=== PATIENT | female | born 1985 | race Caucasian/White ===

== ENCOUNTER 2021-11-09 20:43 | Emergency (ER) | payer OTHER ==
[~2021-11-09] VITALS: Ht 170.2 cm; Wt 120.0 kg
[2021-11-09 20:53] VITALS: BP 189/112
[2021-11-09] MEDS ORDERED: AMOX500C2 PO (21:06)
[2021-11-09] MEDS ORDERED: ACHD5005 PO (21:07)
--- NOTE | 2021-11-09 21:07 | ED General ---
General Stated Complaint: TOOTH PAIN Source of Information: Patient Exam Limitations: No Limitations (NIC RAMIREZ APRN) History of Present Illness Date Seen by Provider: Nov 09, 2021 Time Seen by Provider: 21:02 Initial Comments To ER with reports of right upper dental pain that began around noon today. They are here visiting family from [facility]. Timing/Duration: 4-6 Hours Severity: Severe (NIC RAMIREZ APRN) Allergies and Home Medications Allergies Coded Allergies: No Known Drug Allergies (Unverified , 11/09/21) Patient Home Medication List Home Medication List Reviewed: Yes (NIC RAMIREZ APRN) Amoxicillin (Amoxicillin) 500 Mg Capsule, 500 MG PO TID Prescribed by: NIC RAMIREZ on 11/09/212105 Hydrocodone/Acetaminophen (Hydrocodone-Acetamin 5-325 mg) 1 Each Tablet, 1 TAB PO Q4H PRN for PAIN-MODERATE (5-7) Prescribed by: NIC RAMIREZ on 11/09/212106 Review of Systems Review of Systems Constitutional: see HPI EENTM: see HPI Respiratory: no symptoms reported Cardiovascular: no symptoms reported Genitourinary: no symptoms reported Musculoskeletal: no symptoms reported Skin: no symptoms reported Psychiatric/Neurological: No Symptoms Reported Hematologic/Lymphatic: No Symptoms Reported Immunological/Allergic: no symptoms reported (NIC RAMIREZ APRN) Physical Exam Vital Signs Vital Signs - First Documented 11/09/21 20:53 Temp 36.3 Pulse 75 Resp 20 B/P (MAP) 189/112 (137) Pulse Ox 98 O2 Delivery Room Air (OLINDA BOURGEOIS MD) Vital Signs Capillary Refill : (NIC RAMIREZ APRN) Height, Weight, BMI Height: '" Weight: lbs. oz. kg; BMI Method: General Appearance: No Apparent Distress, WD/WN Eyes: Bilateral Eye Normal Inspection, Bilateral Eye PERRL, Bilateral Eye EOMI HEENT: PERRL/EOMI, Other (No obvious external swelling though there is some swelling without fluctuance at the gingival buccal fold superior to the carious and fractured tooth #4.) Neck: No Lymphadenopathy (L) Respiratory: No Accessory Muscle Use, No Respiratory Distress Extremity: Normal Capillary Refill, Normal Inspection Neurologic/Psychiatric: Alert, Oriented x3 Skin: Normal Color, Warm/Dry (NIC RAMIREZ APRN) Progress/Results/Core Measures Suspected Sepsis SIRS Temperature: Pulse: Respiratory Rate: Blood Pressure / Mean: (NIC RAMIREZ APRN) Results/Orders Medications Given in ED Current Medications Medications Dose Ordered Sig/Se Route Start Time Stop Time Status Last Admin Dose Admin Acetaminophen/ Hydrocodone Bitart 1 ea Q4H PRN PO 11/09/21 21:15 11/09/21 21:26 DC 11/09/21 21:17 1 EA Ceftriaxone Sodium 1,000 mg ONCE ONCE IM 11/09/21 21:15 11/09/21 21:16 DC 11/09/21 21:17 1,000 MG Lidocaine HCl 2.1 ml ONCE ONCE INJ 11/09/21 21:15 11/09/21 21:16 DC 11/09/21 21:17 2.1 ML (OLINDA BOURGEOIS MD) Vital Signs/I&O 11/09/21 20:53 Temp 36.3 Pulse 75 Resp 20 B/P (MAP) 189/112 (137) Pulse Ox 98 O2 Delivery Room Air (OLINDA BOURGEOIS MD) Vital Signs/I&O Capillary Refill : (NIC RAMIREZ APRN) Departure Impression Primary Impression: Dental abscess Disposition: HOME, SELF-CARE Condition: Stable Departure-Patient Inst. Decision time for Depature: 21:05 (NIC RAMIREZ APRN) Patient Instructions: Tooth Abscess (DC) Add. Discharge Instructions: 1. You can use topical Orajel. Take the antibiotics and the pain medication as directed. The prescribed pain medication can be taken in addition to [id number] ibuprofen 4 tablets every 8 hours for about 3 days. Scripts Hydrocodone/Acetaminophen (Hydrocodone-Acetamin 5-325 mg) 1 Each Tablet 1 TAB PO Q4H PRN for PAIN-MODERATE (5-7), #10 TAB Prov: NIC RAMIREZ APRN 11/09/21 Amoxicillin (Amoxicillin) 500 Mg Capsule 500 MG PO TID, #21 CAP 0 Refills Prov: NIC RAMIREZ APRN 11/09/21 ATTENDING PHYSICIAN NOTE: I was physically present as attending physician in the emergency department during the care of this patient, but I was not directly involved in the decision making or delivery of care for this patient. (OLINDA BOURGEOIS MD) Images Mouth/Nose 1 - Caries, Fracture Tooth, Swelling, Tenderness (NIC RAMIREZ APRN) NIC RAMIREZ APRN Nov 09, 2021 21:07 OLINDA BOURGEOIS MD Nov 10, 2021 03:01
[2021-11-09] MEDS ORDERED: LIDOCAINE 1% INJ 20 ML 20 ML VIAL INJ ONE (21:15)
[2021-11-09] MEDS ORDERED: cefTRIAXone 1,000 MG VIAL IM ONE (21:15)
== END 2021-11-09 21:23 | disposition home or self-care (01) ==
LOC: EDUNIT# 20:43 → ER 20:50
DX: K04.7 Periapical abscess without sinus (principal)
CPT/HCPCS: 99284